=== PATIENT | male | born 1970 | race African-American/Black ===

== ENCOUNTER → 2019-12-14 09:51 | Outpatient (CLI) | payer OTHER | END | disposition home or self-care (01) | LOC: D.US 09:51 | PROVIDERS: ATTEND Family Medicine | DX: M79.89 Other specified soft tissue disorders (principal) ==

== ENCOUNTER 2019-12-20 15:52 | Emergency (ER) | payer OTHER ==
[~2019-12-20] VITALS: Ht 182.9 cm; Wt 80.5 kg
[2019-12-20 15:58] VITALS: BP 143/87; Ht 182.9 cm; Wt 80.5 kg
[2019-12-20] MEDS ORDERED: VOLTAREN75 MG PO (16:55)
[2019-12-20] MEDS ORDERED: BACLOFEN20 M1 PO (16:55)
== END 2019-12-20 17:33 | disposition home or self-care (01) ==
LOC: D.ER 15:52
DX: S16.9XXA Unspecified injury of muscle, fascia and tendon at neck level, initial encounter (principal); V79.9XXA Bus occupant (driver) (passenger) injured in unspecified traffic accident, initial encounter

== ENCOUNTER 2020-05-09 12:50 | Emergency (ER) | payer OTHER ==
[~2020-05-09] VITALS: Ht 182.9 cm; Wt 76.1 kg
[~2020-05-09 12:50] MED LIST: BACLOFEN20 M1 PO; VOLTAREN75 MG PO
[2020-05-09 13:06] VITALS: Ht 182.9 cm; Wt 76.1 kg
[2020-05-09 13:53] LABS: BASOPHILS 1.2 % (0-2); CALC OSMOLALITY 269 mosm/kg (275-300); CALCIUM 8.6 mg/dL (8.5-10.1); CARBON DIOXIDE 28.7 mmol/L (21.0-32.0); CHLORIDE - SERUM 101 mmol/L (98-107); CREATININE - SERUM 0.8 mg/dL (0.6-1.3); EOSINOPHILS 7.4 % (0-7); GLUCOSE 84 mg/dL (74-106); HEMATOCRIT 43.1 % (42.0-54.0); HEMOGLOBIN 14.2 g/dL (13.5-17.5); LYMPHOCYTES 48.1 % (15-50); MCH 29.4 pg (26.0-34.0); MCHC 32.9 g/dL (31.0-37.0); MCV 89.2 fL (80.0-100.0); MEAN PLATELET VOLUME 10.4 fL (7.4-10.4); MONOCYTES 18.5 % (2-11); NEUTROPHILS 24.8 % (40-80); PLATELET COUNT 205 10x3/uL (130-400); POTASSIUM - SERUM 4.1 mmol/L (3.5-5.1); RBC 4.83 10x6/uL (4.20-6.10); RDW 13.2 % (11.5-14.5); SODIUM 136 mmol/L (136-145); UREA NITROGEN 9 mg/dL (7-18); WBC 3.2 10x3/uL (4.8-10.8); eGFR NON AFRICAN AMERICAN > 90 mL/min (90-120)
[2020-05-09 13:59] LABS: APTT 26.5 SECONDS (22.8-39.4); INR 0.92 (0.85-1.17); PROTIME 12.3 SECONDS (11.6-15.0)
[2020-05-09 14:10] LABS: ALKALINE PHOSPHATASE 102 U/L (30-120); ALT (SGPT) 26 U/L (10-68); BILIRUBIN - TOTAL 0.49 mg/dL (0.2-1.3); CKMB 1.6 U/L (0.0-3.6); CREATINE KINASE 272 UL (21-232); PROTEIN - SERUM 8.3 g/dL (6.4-8.2); TROPONIN-I < 0.017 ng/mL (0.000-0.060)
[2020-05-09 14:31] VITALS: BP 128/88
== END 2020-05-09 14:47 | disposition home or self-care (01) ==
LOC: D.ER 12:50
PROVIDERS: Family Medicine
DX: R07.89 Other chest pain (principal); R19.7 Diarrhea, unspecified; D72.819 Decreased white blood cell count, unspecified; Z20.828 Contact with and (suspected) exposure to other viral communicable diseases

== ENCOUNTER 2020-05-24 08:32 | Emergency (ER) | payer OTHER ==
[~2020-05-24] VITALS: Ht 182.9 cm; Wt 78.2 kg
[2020-05-24 08:48] VITALS: Ht 182.9 cm; Wt 78.2 kg
[2020-05-24 09:05] LABS: HEMATOCRIT 40.7 % (42.0-54.0); HEMOGLOBIN 13.4 g/dL (13.5-17.5); MCH 29.3 pg (26.0-34.0); MCHC 32.9 g/dL (31.0-37.0); MCV 89.1 fL (80.0-100.0); MEAN PLATELET VOLUME 10.5 fL (7.4-10.4); PLATELET COUNT 187 10x3/uL (130-400); RBC 4.57 10x6/uL (4.20-6.10); RDW 13.8 % (11.5-14.5); WBC 3.8 10x3/uL (4.8-10.8)
[2020-05-24 09:16] LABS: APTT 27.3 SECONDS (22.8-39.4); INR 0.96 (0.85-1.17); PROTIME 12.8 SECONDS (11.6-15.0)
[2020-05-24 09:24] LABS: CALC OSMOLALITY 273 mosm/kg (275-300); CALCIUM 8.8 mg/dL (8.5-10.1); CARBON DIOXIDE 24.9 mmol/L (21.0-32.0); CHLORIDE - SERUM 102 mmol/L (98-107); CREATININE - SERUM 0.8 mg/dL (0.6-1.3); GLUCOSE 90 mg/dL (74-106); POTASSIUM - SERUM 3.8 mmol/L (3.5-5.1); SODIUM 137 mmol/L (136-145); UREA NITROGEN 12 mg/dL (7-18); eGFR NON AFRICAN AMERICAN > 90 mL/min (90-120)
[2020-05-24 09:41] LABS: ALKALINE PHOSPHATASE 113 U/L (30-120); ALT (SGPT) 31 U/L (10-68); BILIRUBIN - TOTAL 0.26 mg/dL (0.2-1.3); CREATINE KINASE 289 UL (21-232); PROTEIN - SERUM 7.8 g/dL (6.4-8.2); TROPONIN-I < 0.017 ng/mL (0.000-0.060)
[2020-05-24 10:07] LABS: EOSINOPHILS 4 % (0-7); LYMPHOCYTES 53 % (15-50); MONOCYTES 14 % (2-11); NEUTROPHILS 29 % (40-80); PLATELET ESTIMATE NORMAL
[2020-05-24 10:22] VITALS: BP 124/80
== END 2020-05-24 10:22 | disposition left against medical advice (07) ==
LOC: D.ER 08:32
PROVIDERS: Emergency Medicine
DX: R07.89 Other chest pain (principal)